=== PATIENT | female | born 1995 | race Hispanic/Latino ===

== ENCOUNTER 2017-10-20 05:24 | Inpatient (IN) | payer BC, OTHER ==
[~2017-10-20] VITALS: Ht 152.4 cm; Wt 67.4 kg
[2017-10-20 06:22] LABS: AMPHET/METH SCREEN,URINE NEGATIVE (NEGATIVE); BARBITURATE SCREEN, URINE NEGATIVE (NEGATIVE); BENZODIAZEPINES SCREEN,URINE NEGATIVE (NEGATIVE); CANNABINOID SCREEN,URINE NEGATIVE (NEGATIVE); COCAINE SCREEN,URINE NEGATIVE (NEGATIVE); OPIATE SCREEN,URINE NEGATIVE (NEGATIVE); PHENCYCLIDINE SCREEN,URINE NEGATIVE (NEGATIVE)
[2017-10-20 06:33] LABS: BASOPHILS % (AUTO) 0.9 % (0.0-5.0); EOSINOPHILS % (AUTO) 2.3 % (0.0-8.0); HEMATOCRIT 37.3 % (36-48); LYMPHOCYTES % (AUTO) 30.2 % (21.0-51.0); MEAN CORPUSCULAR HEMOGLOBIN 32.2 pg (27.0-33.0); MEAN CORPUSCULAR HGB CONC 35.4 g/dL (32.0-36.0); MEAN CORPUSCULAR VOLUME 91.1 fL (79-99); MONOCYTES % (AUTO) 10.5 % (3.0-13.0); NEUTROPHILS % (AUTO) 56.1 % (40.0-77.0); NUCLEATED RED BLOOD CELLS 0.1 % (0.0-0.19); PLATELET COUNT (AUTO) 215 K/uL (130-400); RED BLOOD CELL COUNT(AUTO) 4.09 MIL/uL (4.00-5.50); RED CELL DISTRIBUTION WIDTH 12.4 % (11.0-15.5); WHITE BLOOD COUNT (AUTO) 9.6 K/uL (4.8-10.8)
[2017-10-20 06:49] LABS: CREATININE 0.6 mg/dL (0.5-1.5); POTASSIUM 3.4 mmol/L (3.5-5.1)
[2017-10-20 06:54] LABS: ALBUMIN 3.7 g/dL (3.5-5.0); BILIRUBIN,TOTAL 0.4 mg/dL (0.2-1.0); TOTAL PROTEIN, SERUM 7.5 g/dL (6.0-8.3)
[2017-10-20] MEDS ORDERED: GADOBENATE DIMEGLUMINE 10 ML IV ONE (10:13)
[2017-10-20 16:05] VITALS: BP 123/76
[2017-10-20 19:00] VITALS: BP 123/74
[2017-10-20] MEDS ORDERED: ACETAMINOPHEN 325 MG TAB PO PRN (22:30)
[2017-10-20] MEDS ORDERED: LIDOCAINE HCL-MPF 1% 2ML VIAL IVP PRN (22:30)
[2017-10-20] MEDS ORDERED: POTASSIUM CHLORIDE 20MEQ/100ML 100 ML IV PRN (22:30)
[2017-10-20] MEDS ORDERED: ONDANSETRON HCL MDV 20ML 2 MG/ML VIAL IVP PRN (22:30)
[2017-10-20] MEDS ORDERED: POTASSIUM CHLORIDE 10% ELIXIR 20 MEQ/15 ML UDCUP PO PRN (22:30)
[2017-10-20 23:00] VITALS: BP 111/67
[2017-10-20] MEDS ORDERED: FAMOTIDINE 20MG TAB 20 MG TAB ONE (23:54)
[2017-10-21 03:00] VITALS: BP 121/80
[2017-10-21 06:43] LABS: HEMATOCRIT 39.2 % (36-48); MEAN CORPUSCULAR HEMOGLOBIN 32.7 pg (27.0-33.0); MEAN CORPUSCULAR HGB CONC 35.6 g/dL (32.0-36.0); MEAN CORPUSCULAR VOLUME 91.9 fL (79-99); NUCLEATED RED BLOOD CELLS 0.2 % (0.0-0.19); PLATELET COUNT (AUTO) 221 K/uL (130-400); RED BLOOD CELL COUNT(AUTO) 4.26 MIL/uL (4.00-5.50); RED CELL DISTRIBUTION WIDTH 12.6 % (11.0-15.5); WHITE BLOOD COUNT (AUTO) 8.8 K/uL (4.8-10.8)
[2017-10-21 06:48] LABS: HEMOGLOBIN A1C 4.9 % (4.0-6.0)
[2017-10-21 07:01] LABS: ALBUMIN 3.5 g/dL (3.5-5.0); BILIRUBIN,TOTAL 0.5 mg/dL (0.2-1.0); CREATININE 0.6 mg/dL (0.5-1.5); POTASSIUM 3.7 mmol/L (3.5-5.1); THYROID STIMULATING HORMONE 1.13 uIU/mL (0.36-3.74); TOTAL PROTEIN, SERUM 7.4 g/dL (6.0-8.3)
[2017-10-21 07:47] LABS: ERYTHROCYTE SEDIMENTATION RATE 16 MM/HR (0-15)
[2017-10-21 08:00] VITALS: BP 122/71
[2017-10-21] MEDS: FAMOTIDINE 20MG TAB 20 MG TAB PO SCH ×2 (08:25→09:17)
[2017-10-21] MEDS ORDERED: ACETAMINOPHEN-CODEINE 300/30MG TAB PO PRN (09:00)
[2017-10-21] MEDS: AMITRIPTYLINE HCL 25 MG TABLET PO SCH (09:16)
[2017-10-21] MEDS ORDERED: GADOBENATE DIMEGLUMINE 10 ML IV ONE (09:39)
[2017-10-21 11:00] VITALS: BP 103/77
[2017-10-21 16:00] VITALS: BP_SYST 129; BP_SYST 137; BP_DIAS 69; BP_DIAS 78
[2017-10-21 20:00] VITALS: BP 119/62
[2017-10-21] MEDS: POTASSIUM CHLORIDE 20 MEQ ERTAB PO PRN ×2 (20:28→22:51)
[2017-10-21 23:57] VITALS: BP 122/70
[2017-10-22 03:37] VITALS: BP 124/66
[2017-10-22 07:00] LABS: BASOPHILS % (AUTO) 0.5 % (0.0-5.0); EOSINOPHILS % (AUTO) 2.6 % (0.0-8.0); HEMATOCRIT 39.3 % (36-48); LYMPHOCYTES % (AUTO) 32.7 % (21.0-51.0); MEAN CORPUSCULAR HEMOGLOBIN 32.7 pg (27.0-33.0); MEAN CORPUSCULAR HGB CONC 35.4 g/dL (32.0-36.0); MEAN CORPUSCULAR VOLUME 92.2 fL (79-99); MONOCYTES % (AUTO) 9.2 % (3.0-13.0); NUCLEATED RED BLOOD CELLS 0.1 % (0.0-0.19); PLATELET COUNT (AUTO) 230 K/uL (130-400); RED BLOOD CELL COUNT(AUTO) 4.26 MIL/uL (4.00-5.50); RED CELL DISTRIBUTION WIDTH 12.7 % (11.0-15.5); WHITE BLOOD COUNT (AUTO) 10.2 K/uL (4.8-10.8)
[2017-10-22 07:27] LABS: CREATININE 0.6 mg/dL (0.5-1.5); POTASSIUM 4.1 mmol/L (3.5-5.1)
[2017-10-22 08:00] VITALS: BP 109/62
[2017-10-22] MEDS: AMITRIPTYLINE HCL 25 MG TABLET PO SCH (08:11)
[2017-10-22 11:00] VITALS: BP 134/73
[2017-10-22 11:49] LABS: INR 1.04 (0.85-1.15); PARTIAL THROMBOPLASTIN TIME 30.6 SEC (26.3-35.5); PROTHROMBIN TIME 10.9 SEC (9.6-11.6)
[2017-10-22 14:47] LABS: CSF TUBE NUMBER 1
[2017-10-22 14:48] LABS: APPEARANCE,CSF CLEAR (CLEAR); APPEARANCE2,CSF CLEAR (CLEAR); COLOR,CSF COLORLESS (COLORLESS); COLOR2,CSF COLORLESS (COLORLESS); CSF 2ND TUBE NUMBER 3
[2017-10-22 14:50] LABS: CSF TOTAL VOLUME 15.5 mL
[2017-10-22 14:55] LABS: WHITE BLOOD CELL1,CSF 6 CMM (0-5)
[2017-10-22 14:56] LABS: RED BLOOD CELL1,CSF 0 CMM (0-0)
[2017-10-22] MEDS: METHYLPREDNISOLONE SOD SUCC 125MG/2ML VIAL IVP SCH ×2 (15:45→20:28)
[2017-10-22 16:00] VITALS: BP 114/71
[2017-10-22 19:00] VITALS: BP 135/78
[2017-10-22 19:51] LABS: WHITE BLOOD CELL2,CSF 8.5 CMM (0-5)
[2017-10-22 23:00] VITALS: BP 117/77
[2017-10-23 03:00] VITALS: BP 113/63
[2017-10-23 07:00] VITALS: BP 120/78
[2017-10-23] MEDS: FAMOTIDINE 20MG TAB 20 MG TAB PO SCH (09:00)
[2017-10-23] MEDS: AMITRIPTYLINE HCL 25 MG TABLET PO SCH (09:39)
[2017-10-23] MEDS: METHYLPREDNISOLONE SOD SUCC 125MG/2ML VIAL IVP SCH ×2 (09:40→20:17)
[2017-10-23 10:16] LABS: GLUCOSE, CSF 50 mg/dL (40-70); TOTAL PROTEIN, CSF 52 mg/dL (15-45)
[2017-10-23 11:00] VITALS: BP 114/63
[2017-10-23 15:30] VITALS: BP 109/65
[2017-10-23 15:32] VITALS: BP_SYST 142
[2017-10-23 19:20] VITALS: BP 106/58
[2017-10-24] VITALS (7 sets, daily range): BP systolic 102–118; BP diastolic 50–77
[2017-10-24] MEDS: METHYLPREDNISOLONE SOD SUCC 125MG/2ML VIAL IVP SCH ×2 (10:03→20:19)
[2017-10-24] MEDS: AMITRIPTYLINE HCL 25 MG TABLET PO SCH (10:04)
[2017-10-24] MEDS: FAMOTIDINE/PF 20 MG/2 ML VIAL IV SCH ×2 (10:04→20:19)
[2017-10-24 15:23] LABS: MYELIN BASIC PROTEIN-CSF 7.6 ng/mL (0.0-1.2)
[2017-10-25 03:12] VITALS: BP 110/68
[2017-10-25 04:42] LABS: HEMATOCRIT 37.8 % (36-48); LYMPHOCYTES % (AUTO) 6.7 % (21.0-51.0); MEAN CORPUSCULAR HEMOGLOBIN 31.5 pg (27.0-33.0); MEAN CORPUSCULAR HGB CONC 34.5 g/dL (32.0-36.0); MEAN CORPUSCULAR VOLUME 91.4 fL (79-99); MONOCYTES % (AUTO) 4.3 % (3.0-13.0); PLATELET COUNT (AUTO) 228 K/uL (130-400); RED BLOOD CELL COUNT(AUTO) 4.13 MIL/uL (4.00-5.50); RED CELL DISTRIBUTION WIDTH 12.5 % (11.0-15.5); WHITE BLOOD COUNT (AUTO) 19.7 K/uL (4.8-10.8)
[2017-10-25 04:52] LABS: CREATININE 0.6 mg/dL (0.5-1.5); POTASSIUM 3.9 mmol/L (3.5-5.1)
[2017-10-25] MEDS ORDERED: MEDROL DAY 1 BREAKFAST PO NR (07:30)
[2017-10-25 08:12] VITALS: BP 121/77
[2017-10-25] MEDS: FAMOTIDINE/PF 20 MG/2 ML VIAL IV SCH ×2 (08:26→21:23)
[2017-10-25] MEDS: METHYLPREDNISOLONE SOD SUCC 125MG/2ML VIAL IVP SCH ×2 (08:26→21:23)
[2017-10-25] MEDS: AMITRIPTYLINE HCL 25 MG TABLET PO SCH (08:26)
[2017-10-25 11:32] VITALS: BP 105/54
[2017-10-25] MEDS ORDERED: MEDROL DAY 1 LUNCH AND DINNER PO NR (12:00)
[2017-10-25] MEDS ORDERED: GLUCAGON 1MG KIT 1 MG ML IM PRN (13:00)
[2017-10-25] MEDS ORDERED: DEXTROSE 50%-WATER 50 ML DISP.SYRIN IV PRN (13:00)
[2017-10-25] MEDS ORDERED: PHARMACY COMMUNICATION MISC SCH (15:00)
[2017-10-25 16:22] VITALS: BP 117/70
[2017-10-25] MEDS: INSULIN HUMULIN R 100 UNIT/ML 3ML SQ SCH ×2 (16:30→21:00)
[2017-10-25 19:30] VITALS: BP 119/55
[2017-10-25] MEDS ORDERED: MEDROL DAY1 HS PO NR (21:00)
[2017-10-25 23:21] VITALS: BP 132/79
[2017-10-26 03:38] VITALS: BP 113/73
[2017-10-26 04:53] LABS: HEMATOCRIT 37.2 % (36-48); LYMPHOCYTES % (AUTO) 9.4 % (21.0-51.0); MEAN CORPUSCULAR HEMOGLOBIN 32.4 pg (27.0-33.0); MEAN CORPUSCULAR HGB CONC 35.2 g/dL (32.0-36.0); MEAN CORPUSCULAR VOLUME 92.3 fL (79-99); MONOCYTES % (AUTO) 3.8 % (3.0-13.0); NEUTROPHILS % (AUTO) 86.8 % (40.0-77.0); PLATELET COUNT (AUTO) 215 K/uL (130-400); RED BLOOD CELL COUNT(AUTO) 4.04 MIL/uL (4.00-5.50); RED CELL DISTRIBUTION WIDTH 12.6 % (11.0-15.5); WHITE BLOOD COUNT (AUTO) 15.1 K/uL (4.8-10.8)
[2017-10-26 05:09] LABS: CREATININE 0.6 mg/dL (0.5-1.5); POTASSIUM 3.4 mmol/L (3.5-5.1)
[2017-10-26] MEDS ORDERED: MEDROL DAY 2 BRK PO NR (07:30)
[2017-10-26] MEDS: INSULIN HUMULIN R 100 UNIT/ML 3ML SQ SCH ×4 (07:30→21:00)
[2017-10-26 08:00] VITALS: BP 130/74
[2017-10-26] MEDS ORDERED: SODIUM CHLORIDE 0.9% 100 ML IV ONE (08:25)
[2017-10-26] MEDS: METHYLPREDNISOLONE SOD SUCC 125MG/2ML VIAL IVP SCH (08:26)
[2017-10-26] MEDS ORDERED: COMPOUND IV REFRIGERATED 1 EACH IVSOLN MISC PRN (08:30)
[2017-10-26] MEDS: METHYLPREDNISOLONE SOD SUCC 500 MG in SODIUM CHLORIDE 0.9% 50 ML IVP SCH ×2 (08:36→21:03)
[2017-10-26] MEDS: FAMOTIDINE/PF 20 MG/2 ML VIAL IV SCH ×2 (08:37→20:59)
[2017-10-26] MEDS: AMITRIPTYLINE HCL 25 MG TABLET PO SCH (08:37)
[2017-10-26 11:21] VITALS: BP 108/68
[2017-10-26] MEDS ORDERED: MEDROL DAY 2 LCH PO NR (11:30)
[2017-10-26 16:00] VITALS: BP 119/53
[2017-10-26] MEDS ORDERED: MEDROL DAY 2 DIN PO NR (16:30)
[2017-10-26 20:00] VITALS: BP 111/70
[2017-10-26] MEDS ORDERED: MEDROL DAY 2 HS PO NR (21:00)
[2017-10-27] MEDS ORDERED: MEDROL DAY 3 PO NR (07:30)
[2017-10-27] MEDS ORDERED: MEDROL DAY 1 BREAKFAST PO NR (07:30)
[2017-10-27] MEDS ORDERED: MEDROL DAY 1 LUNCH AND DINNER PO NR (12:00)
[2017-10-27] MEDS ORDERED: MEDROL DAY1 HS PO NR (21:00)
[2017-10-28] MEDS ORDERED: MEDROL DAY 4 BKF PO NR (07:30)
[2017-10-28] MEDS ORDERED: MEDROL DAY 2 BRK PO NR (07:30)
[2017-10-28] MEDS ORDERED: MEDROL DAY 4 LCH PO NR (11:30)
[2017-10-28] MEDS ORDERED: MEDROL DAY 2 LCH PO NR (11:30)
[2017-10-28] MEDS ORDERED: MEDROL DAY 4 DIN PO NR (16:30)
[2017-10-28] MEDS ORDERED: MEDROL DAY 2 DIN PO NR (16:30)
[2017-10-28] MEDS ORDERED: MEDROL DAY 2 HS PO NR (21:00)
[2017-10-29] MEDS ORDERED: MEDROL DAY 5 BKF PO NR (07:30)
[2017-10-29] MEDS ORDERED: MEDROL DAY 3 PO NR (07:30)
[2017-10-29] MEDS ORDERED: MEDROL DAY 5 HS PO NR (21:00)
[2017-10-30] MEDS ORDERED: MEDROL DAY 4 BKF PO NR (07:30)
[2017-10-30] MEDS ORDERED: MEDROL DAY 6 PO NR (07:30)
[2017-10-30] MEDS ORDERED: MEDROL DAY 4 LCH PO NR (11:30)
[2017-10-30] MEDS ORDERED: MEDROL DAY 4 DIN PO NR (16:30)
[2017-10-31] MEDS ORDERED: MEDROL DAY 5 BKF PO NR (07:30)
[2017-10-31] MEDS ORDERED: MEDROL DAY 5 HS PO NR (21:00)
[2017-11-01] MEDS ORDERED: MEDROL DAY 6 PO NR (07:30)
== END 2017-10-26 22:00 | disposition home or self-care (01) | DRG 60 ==
LOC: EDH 05:24 → EDHIP 13:13 → 3CH 14:19
PROVIDERS: ADMIT Internal Medicine Nephrology; ATTEND Internal Medicine Nephrology
DX: G35 Multiple sclerosis (principal); D72.829 Elevated white blood cell count, unspecified; E66.9 Obesity, unspecified; G51.0 Bell's palsy; H54.7 Unspecified visual loss; T38.0X5A Adverse effect of glucocorticoids and synthetic analogues, initial encounter; Z68.29 Body mass index [BMI] 29.0-29.9, adult; Z83.3 Family history of diabetes mellitus
CPT/HCPCS: 36415; 70450; 70553; 72156; 72157; 80048; 80053; 80305; 82607; 82652; 82945; 82948; 83036; 83873; 84157; 84443; 84484; 84703; 85025; 85027; 85610; 85651; 85730; 86038; 87071; 87205; 89051; 93005; A9577; J2930; J3490

== ENCOUNTER 2019-08-24 09:52 | Emergency (ER) | payer BC, OTHER ==
[2019-08-24] MEDS ORDERED: DIPHENHYDRAMINE HCL 25 MG CAPSULE ONE (10:17)
[2019-08-24] MEDS ORDERED: FAMOTIDINE/PF 20 MG/2 ML VIAL IV ONE (10:18)
[2019-08-24] MEDS ORDERED: RANITIDINE HCL 15 MG/1 ML PO SCH (11:00)
[2019-08-24] MEDS ORDERED: METHYLPREDNISOLONE SOD SUCC 125MG/2ML VIAL ONE (11:37)
== END 2019-08-24 11:45 | disposition home or self-care (01) ==
LOC: EDH 09:52
DX: T78.40XA Allergy, unspecified, initial encounter (principal); X58.XXXA Exposure to other specified factors, initial encounter
CPT/HCPCS: 81025; 96372; 99283; J2930; Q0163; J3490

== ENCOUNTER → 2019-10-29 | Outpatient (CLI) | payer OTHER | END | disposition home or self-care (01) | LOC: RAH 12:52 | PROVIDERS: ATTEND Family Medicine | DX: R59.0 Localized enlarged lymph nodes (principal) | CPT/HCPCS: 76536 ==

== ENCOUNTER 2019-11-13 00:57 | Emergency (ER) | payer BC, OTHER ==
[2019-11-13] MEDS ORDERED: ONDANSETRON HCL 4 MG/2 ML VIAL ONE (01:14)
[2019-11-13] MEDS ORDERED: SODIUM CHLORIDE 0.9% 1000ML 1,000 ML IV ONE ×2 (01:15→02:08)
[2019-11-13] MEDS ORDERED: IOHEXOL-350 75 ML VIAL IV ONE (02:10)
[2019-11-13] MEDS ORDERED: CEFTRIAXONE SODIUM 1 GM ONE (03:27)
== END 2019-11-13 04:03 | disposition home or self-care (01) ==
LOC: EDH 00:57
DX: K52.9 Noninfective gastroenteritis and colitis, unspecified (principal); N39.0 Urinary tract infection, site not specified
CPT/HCPCS: 36415; 74177; 80053; 81001; 81025; 83690; 85025; 87077 ×2; 87088; 87186 ×2; 96361; 96374; 96375; 99285; J0696; J2405; J7030 ×2; Q9967

== ENCOUNTER 2020-04-15 16:17 | Emergency (ER) | payer BC, OTHER | END 2020-04-15 16:47 | disposition home or self-care (01) | LOC: EDH 16:17 | DX: S80.11XA Contusion of right lower leg, initial encounter (principal); G35 Multiple sclerosis; W18.39XA Other fall on same level, initial encounter; Y93.89 Activity, other specified; Y92.89 Other specified places as the place of occurrence of the external cause; Y99.8 Other external cause status | CPT/HCPCS: 99281 ==

== ENCOUNTER 2020-10-24 21:09 | Emergency (ER) | payer OTHER ==
[2020-10-24] MEDS ORDERED: SODIUM CHLORIDE 0.9% 1000ML 1,000 ML IV ONE (21:10)
[2020-10-24] MEDS ORDERED: ONDANSETRON HCL 4 MG/2 ML VIAL IVP ONE (21:10)
[2020-10-24 21:50] LABS: BASOPHILS % (AUTO) 0.9 % (0.0-5.0); EOSINOPHILS % (AUTO) 1.7 % (0.0-8.0); HEMATOCRIT 40.4 % (36-48); LYMPHOCYTES % (AUTO) 27.7 % (21.0-51.0); MEAN CORPUSCULAR HEMOGLOBIN 30.5 pg (27.0-33.0); MEAN CORPUSCULAR HGB CONC 32.9 g/dL (32.0-36.0); MEAN CORPUSCULAR VOLUME 92.7 fL (79-99); MONOCYTES % (AUTO) 9.7 % (3.0-13.0); NEUTROPHILS % (AUTO) 59.7 % (40.0-77.0); PLATELET COUNT (AUTO) 241 K/uL (130-400); RED BLOOD CELL COUNT(AUTO) 4.36 MIL/uL (4.00-5.50); RED CELL DISTRIBUTION WIDTH 12.5 % (11.0-15.5); WHITE BLOOD COUNT (AUTO) 11.9 K/uL (4.8-10.8)
[2020-10-24 21:55] LABS: APPEARANCE,URINE Clear (CLEAR); BILIRUBIN,URINE Negative (NEGATIVE); COLOR,URINE Yellow (YELLOW); GLUCOSE, URINE (UA) Negative (NEGATIVE); KETONES,URINE Negative (NEGATIVE); LEUKOCYTE ESTERASE ,URINE Small (NEGATIVE); NITRATE,URINE Negative (NEGATIVE); OCCULT BLOOD,URINE Negative (NEGATIVE); PROTEIN,URINE Negative (NEGATIVE); UROBILINOGEN,URINE 0.2 mg/dL (0.2-1.0)
[2020-10-24 21:57] LABS: HCG,QUAL RESULT NEGATIVE (NEGATIVE)
[2020-10-24 22:03] LABS: RBC,URINE 0-1 /HPF (0-1)
[2020-10-24 22:03] LABS: CREATININE 0.8 mg/dL (0.5-1.5); POTASSIUM 3.9 mmol/L (3.5-5.1)
[2020-10-24 22:04] LABS: BACTERIA,URINE Rare /HPF (None Seen); MUCUS,URINE Rare LPF (None Seen); SQUAMOUS EPITHELIAL CELL,UR Few /HPF (0-2)
[2020-10-24 22:10] LABS: BILIRUBIN,DIRECT 0.1 mg/dL (0.0-0.3); BILIRUBIN,TOTAL 0.4 mg/dL (0.2-1.0); TOTAL PROTEIN, SERUM 7.8 g/dL (6.0-8.3)
[2020-10-24 22:11] LABS: ALBUMIN 3.8 g/dL (3.5-5.0)
[2020-10-24 22:17] LABS: INR 1.1 (0.85-1.15); PROTHROMBIN TIME 11.9 SEC (9.6-11.6)
[2020-10-24 22:18] LABS: PARTIAL THROMBOPLASTIN TIME 30.4 SEC (26.3-35.5)
[2020-10-24 22:20] LABS: AMPHET/METH SCREEN,URINE NEGATIVE (NEGATIVE); BARBITURATE SCREEN, URINE NEGATIVE (NEGATIVE); BENZODIAZEPINES SCREEN,URINE NEGATIVE (NEGATIVE); CANNABINOID SCREEN,URINE NEGATIVE (NEGATIVE); COCAINE SCREEN,URINE NEGATIVE (NEGATIVE); OPIATE SCREEN,URINE NEGATIVE (NEGATIVE); PHENCYCLIDINE SCREEN,URINE NEGATIVE (NEGATIVE)
[2020-10-24] MEDS ORDERED: IOHEXOL 350 MG/ML 100ML INFUS..BTL IV ONE (22:49)
== END 2020-10-25 00:15 | disposition home or self-care (01) ==
LOC: EDH 21:09
DX: A09 Infectious gastroenteritis and colitis, unspecified (principal)
CPT/HCPCS: 36415; 74177; 80048; 80076; 80305; 81001; 81025; 82550; 83605; 83690; 84484; 85025; 85610; 85730; 87040 ×2; 93005; 96361; 96374; 99285; J2405; J7030; Q9967

== ENCOUNTER → 2022-01-16 | Outpatient (CLI) | payer OTHER | END | disposition home or self-care (01) | LOC: RAH 12:39 | PROVIDERS: ATTEND Nurse Practitioner Family | DX: G35 Multiple sclerosis (principal) | CPT/HCPCS: 70553; 72156 ==

== ENCOUNTER → 2022-02-14 | Outpatient (CLI) | payer OTHER | END | disposition home or self-care (01) | LOC: RAH 08:41 | PROVIDERS: ATTEND Family Medicine | DX: K21.9 Gastro-esophageal reflux disease without esophagitis (principal); N63.0 Unspecified lump in unspecified breast; N63.20 Unspecified lump in the left breast, unspecified quadrant | CPT/HCPCS: 74240; 76641 ==